=== PATIENT | male | born 1950 | race Caucasian/White ===

== ENCOUNTER 2024-03-18 15:23 | Inpatient (IN) | payer MEDICARE ==
[2024-03-18] MEDS ORDERED: dilTIAZem 25 MG/5 ML VIAL ONE (15:52)
[2024-03-18 16:22] LABS: #Basophils 0.06 10x3/uL (0.0-0.2); %Basophils 0.6 % (0.0-1.0); %Eosinophils 1.8 % (0.0-10.0); %Lymphocytes 25.8 % (21.0-51.0); %Monocytes 6.8 % (0.0-10.0); %Neutrophils 64.7 % (42.0-75.0); Hemoglobin 13.7 g/dL (14.0-18.0); Mean Corpuscular HGB CONC 34.3 g/dL (32.0-36.0); Mean Corpuscular Hemoglobin 29.5 pg (27.0-31.0); Mean Platelet Volume 10.9 fL (7.4-10.4); Platelet Count 258 10x3/uL (130-400); RBC Distribution Width 13.6 % (11.5-14.5); Red Blood Cell (RBC) Count 4.65 mill/uL (4.70-6.10)
[2024-03-18 16:47] LABS: Troponin I Less than 0.010 ng/mL (< 0.028)
[2024-03-18 16:52] LABS: ALT (SGPT) 20 U/L (8-55); AST (SGOT) 17 U/L (5-34); Albumin 3.5 g/dL (3.4-4.8); Alkaline Phosphatase 57 U/L (40-110); Anion Gap 16 mmol/L (10-20); BUN (Urea Nitrogen) 28 mg/dL (8.4-25.7); Bilirubin, Total 0.4 mg/dL (0.2-1.2); Calc. Creatinine Clearance 0 mL/min (70-130); Calcium 9.1 mg/dL (7.8-10.44); Carbon Dioxide 23 mmol/L (23-31); Chloride 105 mmol/L (98-107); Estimated GFR 38; Globulin 3.8 g/dL (2.4-3.5); Glucose 217 mg/dL (83-110); Potassium 3.7 mmol/L (3.5-5.1); Protein, Total 7.3 g/dL (5.8-8.1); Sodium 140 mmol/L (136-145)
[2024-03-18] MEDS ORDERED: Acetaminophen 650 MG Suppository PR PRN (18:29)
[2024-03-18] MEDS ORDERED: Ondansetron ODT 4 MG TAB PO PRN (18:29)
[2024-03-18] MEDS ORDERED: Ondansetron PF 4 MG/2 ML Vial IVP PRN (18:29)
[2024-03-18] MEDS ORDERED: Acetaminophen 325 MG TAB PO PRN (18:29)
[2024-03-18 19:09] LABS: Hemoglobin A1c 6.4 % (4.0-6.0)
[2024-03-18 19:10] LABS: Magnesium 1.8 mg/dL (1.6-2.6)
[2024-03-18] MEDS ORDERED: Electrolyte Replacement Protocol 1 EACH FS SCH (19:15)
[2024-03-18 19:31] LABS: Troponin I 0.016 ng/mL (< 0.028)
[2024-03-18 19:59] VITALS: BMI 38.0
[2024-03-18] MEDS: Enoxaparin 100 MG (1 mL) SYRINGE SC SCH (22:53)
[2024-03-18] MEDS: Magnesium 2 GM/50 ML(in water) 2 GM in Premix 1 BAG IVPB SCH (22:53)
[2024-03-18] MEDS: Enoxaparin 30 MG (0.3 mL) SYRINGE SC SCH (22:54)
[2024-03-18 23:38] LABS: Troponin I Less than 0.010 ng/mL (< 0.028)
[2024-03-18] MEDS: traZODone HCl 50 MG TAB PO SCH (23:48)
[2024-03-19 04:50] LABS: #Basophils 0.06 10x3/uL (0.0-0.2); %Basophils 0.7 % (0.0-1.0); %Lymphocytes 43.3 % (21.0-51.0); %Monocytes 8.7 % (0.0-10.0); %Neutrophils 44.1 % (42.0-75.0); Hematocrit 36.8 % (42.0-52.0); Hemoglobin 11.9 g/dL (14.0-18.0); Mean Corpuscular HGB CONC 32.3 g/dL (32.0-36.0); Mean Corpuscular Hemoglobin 28.7 pg (27.0-31.0); Mean Corpuscular Volume 88.9 fL (78.0-98.0); Mean Platelet Volume 10.8 fL (7.4-10.4); Platelet Count 217 10x3/uL (130-400); RBC Distribution Width 13.4 % (11.5-14.5); Red Blood Cell (RBC) Count 4.14 mill/uL (4.70-6.10)
[2024-03-19 05:23] LABS: Anion Gap 11 mmol/L (10-20); BUN (Urea Nitrogen) 30 mg/dL (8.4-25.7); Calc. Creatinine Clearance 66 mL/min (70-130); Calcium 8.8 mg/dL (7.8-10.44); Carbon Dioxide 27 mmol/L (23-31); Chloride 106 mmol/L (98-107); Estimated GFR 39; Glucose 109 mg/dL (83-110); Magnesium 2.3 mg/dL (1.6-2.6); Sodium 140 mmol/L (136-145)
[2024-03-19 07:31] LABS: Bilirubin Negative (Negative); Blood, Urine Negative (Negative); Clarity Clear (Clear); Glucose, Urine (Dipstick) Normal (Negative); Ketone, Urine Negative (Negative); Leukocyte Negative Leu/uL (Negative); Nitrite Negative (Negative); Protein, Urine (Dipstick) Negative (Neg-Trace); RBC/HPF 0-3 HPF (0-3); Specific Gravity, Urine 1.009 (1.002-1.036); Squamous Epithelial 0-3 HPF (0-3); Urobilinogen Normal mg/dL (Less than 2); WBC/HPF 0-3 HPF (0-3); pH, Urine 5.5 (5.0-9.0)
[2024-03-19 07:52] LABS: Bacteria/HPF None Seen HPF (None Seen)
[2024-03-19] MEDS ORDERED: Amiodarone 450 MG in Dextrose 5% in Water 250 ML IVPB SCH (14:30)
[2024-03-19] MEDS: Amiodarone 150 MG, Admixture Fee 1 EACH in Dextrose 5% in Water 100 ML IVPB SCH (16:22)
[2024-03-19] MEDS: Amiodarone 450 MG, Admixture Fee 1 EACH in Dextrose 5% in Water 250 ML IVPB SCH (16:40)
[2024-03-19] MEDS ORDERED: Dextrose 50% Abboject 50 ML SYRINGE SLOW IVP PRN (16:41)
[2024-03-19] MEDS ORDERED: HumaLOG 300 UNITS/3 ML VIAL SC PRN (16:41)
[2024-03-19] MEDS ORDERED: Dextrose 5% in Water 1,000 ML IV PRN (16:41)
[2024-03-19] MEDS ORDERED: Glucagon 1 MG/ML KIT IM PRN (16:41)
[2024-03-19 17:06] LABS: Free T4 (Free Thyroxine) 0.77 ng/dL (0.70-1.48); Thyroid Stimulating Hormone 18.9287 uIU/mL (0.35-4.94)
[2024-03-19] MEDS: Apixaban 5 MG TAB PO SCH (21:27)
[2024-03-19] MEDS: traZODone HCl 50 MG TAB PO SCH (21:28)
[2024-03-19] MEDS: Flecainide 50 MG TAB PO SCH (21:28)
[2024-03-20 05:40] LABS: Anion Gap 17 mmol/L (10-20); BUN (Urea Nitrogen) 26 mg/dL (8.4-25.7); Calc. Creatinine Clearance 62 mL/min (70-130); Calcium 8.9 mg/dL (7.8-10.44); Carbon Dioxide 24 mmol/L (23-31); Chloride 103 mmol/L (98-107); Estimated GFR 36; Glucose 111 mg/dL (83-110); Potassium 3.9 mmol/L (3.5-5.1); Sodium 140 mmol/L (136-145)
[2024-03-20 06:11] LABS: #Basophils 0.06 10x3/uL (0.0-0.2); %Basophils 0.7 % (0.0-1.0); %Lymphocytes 38.3 % (21.0-51.0); %Monocytes 8.7 % (0.0-10.0); %Neutrophils 49.1 % (42.0-75.0); Hematocrit 37.4 % (42.0-52.0); Hemoglobin 12.4 g/dL (14.0-18.0); Mean Corpuscular HGB CONC 33.2 g/dL (32.0-36.0); Mean Corpuscular Hemoglobin 29.4 pg (27.0-31.0); Mean Corpuscular Volume 88.6 fL (78.0-98.0); Mean Platelet Volume 11.6 fL (7.4-10.4); Platelet Count 190 10x3/uL (130-400); RBC Distribution Width 13.4 % (11.5-14.5); Red Blood Cell (RBC) Count 4.22 mill/uL (4.70-6.10)
[2024-03-20] MEDS ORDERED: Non-Formulary Item 1 EACH (Levothyroxine Sodium [Levothyroxine Sodium] 200 MCG Tablet) PO SCH (09:00)
[2024-03-20] MEDS: oxyCODONE 5 MG TAB PO SCH (09:07)
[2024-03-21] MEDS: Levothyroxine Sodium 100 MCG TAB PO SCH (05:50)
[2024-03-21] MEDS: Pyridostigmine Bromide 180 MG SRTAB PO SCH (09:29)
[2024-03-21] MEDS: oxyCODONE 5 MG TAB PO SCH (09:39)
[2024-03-21 12:32] VITALS: BP 147/85; TEMP 97.6
== END 2024-03-21 15:50 | disposition home or self-care (01) | DRG 310 ==
LOC: ERS 15:23 → 2SW 18:17 → OBSVTOIN 03-19 16:41
PROVIDERS: ADMIT Student in an Organized Health Care Education/Training Program; ATTEND Internal Medicine
PROC: 5A09357 Assistance with Respiratory Ventilation, Less than 24 Consecutive Hours, Continuous Positive Airway Pressure (ICD-10-PCS; principal; 2024-03-21)
DX: I48.91 Unspecified atrial fibrillation (principal); N40.0 Benign prostatic hyperplasia without lower urinary tract symptoms; E03.9 Hypothyroidism, unspecified; N18.9 Chronic kidney disease, unspecified; R73.9 Hyperglycemia, unspecified; I48.92 Unspecified atrial flutter; I12.9 Hypertensive chronic kidney disease with stage 1 through stage 4 chronic kidney disease, or unspecified chronic kidney disease; E78.5 Hyperlipidemia, unspecified; G70.00 Myasthenia gravis without (acute) exacerbation; I45.10 Unspecified right bundle-branch block; Z91.040 Latex allergy status; Z79.890 Hormone replacement therapy; Z79.899 Other long term (current) drug therapy; Z79.2 Long term (current) use of antibiotics; Z98.890 Other specified postprocedural states
CPT/HCPCS: 36415; 36416; 71045; 80048; 80053; 81001; 83036; 83735; 83880; 84439; 84443; 84481; 84484; 85025; 93005; 93306; 94660; 96374; J0282; J1650; J3475; J7070